=== PATIENT | male | born 1980 | race African-American/Black ===

== ENCOUNTER 2017-09-07 17:33 | Emergency (ER) | payer SELFPAY ==
[~2017-09-07] VITALS: Ht 182.9 cm; Wt 104.3 kg
[2017-09-07] MEDS ORDERED: FAMOTIDINE 20 MG/2 ML VIAL IV STA (19:26)
[2017-09-07] MEDS ORDERED: ONDANSETRON HCL INJ 2 MG/ML VIAL IV STA (19:26)
[2017-09-07] MEDS ORDERED: SODIUM CHLORIDE 0.9% 1000ML 1,000 ML IV STA (19:26)
[2017-09-07] MEDS ORDERED: DIATRIZOATE MEGL/DIATRIZOA SOD 30 ML BTL PO ONE (19:42)
[2017-09-07 20:13] LABS: BASOPHILS % 0.3 % (0.0-1.0); EOSINOPHILS # (AUTO) 0.4 (0.0-0.4); EOSINOPHILS % 5.2 % (0.0-6.0); HEMATOCRIT 44.4 % (38.2-49.6); HEMOGLOBIN 14.8 g/dL (14.0-18.0); LYMPHOCYTES # (AUTO) 2.2 (1.0-3.2); LYMPHOCYTES % 30.8 % (18.0-39.1); MEAN CORPUSCULAR HGB CONC 33.3 g/dL (31-35); MONOCYTES # (AUTO) 0.6 (0.2-0.8); MONOCYTES % 8.3 % (4.4-11.3); NEUTROPHILS % 55.3 % (38.7-80.0); PLATELET COUNT 163 x10e3/uL (140-360); RED BLOOD COUNT 5.48 x10e6/uL (4.3-5.7); RED CELL DISTRIBUTION WIDTH 15.2 % (11.7-14.4)
[2017-09-07 20:22] LABS: INR 1.03; PROTHROMBIN TIME 12.7 seconds (11.9-14.5)
[2017-09-07 20:23] LABS: PARTIAL THROMBOPLASTIN TIME 29.1 seconds (23.8-35.5)
[2017-09-07 20:30] LABS: ALANINE AMINOTRANSFERASE 27 IU/L (0-55); ALBUMIN 3.6 g/dL (3.5-5.0); ALBUMIN/GLOBULIN RATIO 0.8 (0.8-2.0); ALKALINE PHOSPHATASE 59 IU/L (40-150); AMYLASE 74 U/L (25-125); ANION GAP 16.6 mmol/L (8-16); BLOOD UREA NITROGEN 9 mg/dL (7-26); BUN/CREATININE RATIO 9 (6-25); CALCIUM 9.5 mg/dL (8.4-10.2); CARBON DIOXIDE 21 mmol/L (22-29); CHLORIDE 104 mmol/L (98-107); CREATININE, SERUM 0.97 mg/dL (0.72-1.25); EST GLOMERULAR FILTRATION RATE > 60 ML/MIN (60-); GLUCOSE 90 mg/dL (74-118); LIPASE 50 U/L (8-78); POTASSIUM 3.6 mmol/L (3.5-5.1); SODIUM 138 mmol/L (136-145)
--- NOTE | 2017-09-07 22:02 | Diagnostic Imaging Report ---
EXAM: CT ABDOMEN/PELVIS W DATE: 09/07/2017 7:26 PM INDICATION: \S\abdominal pain, nausea, vomiting \[id number] \[id number] COMPARISON: None TECHNIQUE: The abdomen and pelvis were scanned using a multidetector helical scanner. Coronal and sagittal reformations were obtained. Routine protocol performed. IV Contrast: 100 ml Isovue 370 FINDINGS: LOWER THORAX: No consolidations LIVER/BILIARY: No masses. No ductal dilatation. GALLBLADDER: Unremarkable SPLEEN: Unremarkable PANCREAS: Unremarkable ADRENALS: No nodules KIDNEYS: Symmetric perfusion. No enhancing masses. No hydronephrosis. GI TRACT: No wall thickening or evidence of obstruction. Diverticulosis. Normal appendix. VESSELS: Unremarkable PERITONEUM/RETROPERITONEUM: No free air or fluid LYMPH NODES: No lymphadenopathy REPRODUCTIVE ORGANS/BLADDER: Mild apparent bladder wall thickening. SOFT TISSUES: Unremarkable BONES: Scattered degenerative changes, worse at L5-S1 with posterior disc osteophyte. IMPRESSION: 1. Mild apparent bladder wall thickening, which may be related to underdistention. Correlate with urinalysis. 2. Otherwise no acute abnormality to explain symptoms. Signed by: Dr Shakila Mae MD on 09/07/2017 9:58 PM
[2017-09-07 22:34] VITALS: BP 127/87
[2017-09-07] MEDS ORDERED: SODIUM CHLORIDE 0.9% 50ML 50 ML ONE (23:07)
[2017-09-07] MEDS ORDERED: IOPAMIDOL 370 MG/ML 200 ML INFUS..BTL INJ ONE (23:07)
== END 2017-09-07 22:49 | disposition home or self-care (01) ==
LOC: ER 17:33
DX: R10.84 Generalized abdominal pain (principal); R11.2 Nausea with vomiting, unspecified; R19.7 Diarrhea, unspecified; F17.210 Nicotine dependence, cigarettes, uncomplicated
CPT/HCPCS: 36415; 74177; 80053; 82150; 83690; 85025; 85610; 85730; 99284; J2405; J7030; Q9967

== ENCOUNTER 2017-12-18 20:43 | Emergency (ER) | payer OTHER ==
[~2017-12-18] VITALS: Ht 182.9 cm; Wt 104.3 kg
[2017-12-18 21:36] LABS: HEMATOCRIT 46.3 % (38.2-49.6); HEMOGLOBIN 15.1 g/dL (14.0-18.0)
[2017-12-18 22:05] VITALS: BP 128/87
== END 2017-12-18 22:11 | disposition home or self-care (01) ==
LOC: ER 20:43
DX: K62.5 Hemorrhage of anus and rectum (principal); K64.8 Other hemorrhoids; R10.9 Unspecified abdominal pain
CPT/HCPCS: 36415; 85014; 85018; 99283